=== PATIENT | female | born 1980 | race Two or more races ===

== ENCOUNTER 2019-04-21 17:10 | Emergency (ER) | payer OTHER ==
[~2019-04-21] VITALS: Ht 157.5 cm; Wt 64.5 kg
[2019-04-21 17:17] VITALS: BP 108/72
--- NOTE | 2019-04-21 17:47 | NUR ---
PT A&OX4, RESP EVEN & UNLABORED, SPEECH CLEAR. C/O RT SIDED FACIAL PAIN. TOOK TYLENOL EARLIER TODAY. EXTRACT OPERATOR AT BS TO TAKE PT TO RADIOLOGY
[2019-04-21] MEDS ORDERED: KETOROLAC 60 MG/2 ML ONE (17:50)
[2019-04-21] MEDS ORDERED: KETOROLAC 30 MG/1 ML IM ONE (18:00)
--- NOTE | 2019-04-21 18:25 | NUR ---
PT AMBULATORY TO & FROM [facility] W/OUT INCIDENT; GAIT STEADY; VOIDED URINE SPECIMEN PROVIDED - PALE YELLOW
--- NOTE | 2019-04-21 18:37 | NUR ---
PT REPORTS IMPROVEMENT IN FACIAL PAIN.
[2019-04-21 18:56] LABS: CULTURE INDICATED? YES; MICROSCOPIC AUTO
== END 2019-04-21 19:32 | disposition home or self-care (01) ==
LOC: ED 19:19
DX: G44.209 Tension-type headache, unspecified, not intractable (principal); M26.621 Arthralgia of right temporomandibular joint; N30.00 Acute cystitis without hematuria
CPT/HCPCS: 70450; 81001; 87086; 96372; 99284; J1885